=== PATIENT | male | born 1980 | race Caucasian/White ===

== ENCOUNTER 2020-12-17 15:30 | Outpatient (RCR) | payer BC, SELFPAY | END 2020-12-17 16:25 | disposition other institution (70) | LOC: HO.OT 15:30 | PROVIDERS: PCP Internal Medicine; Visit Provider Physician Assistant | DX: M77.11 Lateral epicondylitis, right elbow (principal); M77.01 Medial epicondylitis, right elbow | CPT/HCPCS: 97035; 97110; 97140; 97166 ==

== ENCOUNTER 2023-02-06 09:43 | Outpatient (AMB) | payer OTHER, SELFPAY ==
--- NOTE | 2023-02-06 10:09 | MHC.OFFWIV ---
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 Patient complaining of cerumen impaction. He states his ears have been feeling blocked and his hearing has been decreased for the past several days. He has been utilizing [id number] earwax removal kit without relief. He denies any otalgia. He denies any fevers or chills. He denies any congestion or rhinorrhea. He is otherwise feeling well. [facility] Social History Patient Tobacco Use Status: Never used Tobacco Review of Systems Const All systems reviewed & are unremarkable except as noted in HPI and below Reports no additional complaints Eyes Reports no additional complaints ENT Reports no additional complaints Card Reports no additional complaints Resp Reports no additional complaints GI Reports no additional complaints Reports no additional complaints Musc Reports no additional complaints Skin/Breast Reports system reviewed and no additional complaints, except as documented Neuro Reports no additional complaints Psych Reports no additional complaints Endo Reports no additional complaints Graeme/Lymph Reports no additional complaints Aller/Immun Reports no additional complaints Physical Exam Vital Signs: Last Vital Signs Temp 97.6 F 02/06/23 10:18 Pulse 76 02/06/23 10:18 BP 130/74 02/06/23 10:18 Pulse Ox 97 02/06/23 10:18 BMI result Body Mass Index 35.4 Const General: cooperative, healthy appearing, no acute distress and well developed Orientation/consciousness: patient oriented x3 HEENT Other: Cerumen impaction bilaterally. Following cerumen removal, external auditory canals are within normal limits bilaterally without erythema, edema, drainage, or tenderness in his tympanic membranes are without bulging, erythema, edema bilaterally. Head: Yes normal to inspection Ears: hearing grossly normal bilaterally General nose exam: Normal external nose present Face and sinus: Yes normal facial exam Mouth: Normal oral and palatal mucosa present Eyes General: appearance normal, both eyes and all related structures Pupils: Equal, round and reactive pupils present EOM: EOMs intact bilaterally Resp Effort & Inspection: normal respiratory effort and no respiratory distress Auscultation: clear to auscultation bilaterally Cardio Rate: regular rate Rhythm: regular rhythm Heart sounds: no gallops, no murmurs and no rubs Peripheral pulses: Peripheral pulses 2+ throughout GI Inspection: No distended Palpation (GI): Soft to palpation and nontender Auscultation: normal bowel sounds Skin General skin exam: no rashes or lesions noted Neuro General: patient oriented x3 Cranial nerves: Yes CN's II-XII intact bilaterally and Yes Equal, round and reactive pupils present Gait exam (Neuro): Normal gait present Motor exam (neuro): 5/5 motor strength present throughout Extrem General: Yes normal to inspection, Yes full ROM and Yes no clubbing, cyanosis or edema Psych Appearance: grossly normal Mental Status: mental status grossly normal Office Procedures Cerumen Removal From which ear canal was the cerumen removed: bilateral Removal: irrigation Notes: patient tolerated procedure well [id number] Irrigation/Lavage Assessment & Plan Assessment & Plan (1) Impacted cerumen of both ears: Code(s): H61.23 - Impacted cerumen, bilateral Plan: This is a 42-year-old male presenting to the office complaining of bilateral ear fullness. On physical examination, he has bilateral cerumen impactions. His physical exam is otherwise benign, his vital signs are stable, and he is overall nontoxic appearing. Cerumen removal was performed using irrigation. On re-examination, his external auditory canals are without cerumen impaction, edema, or erythema in his tympanic membranes are without bulging, edema, or erythema. Patient instructed to follow-up here for persistent or worsening symptoms. Patient verbalizes understanding and he is in agreement with the plan. Coding Level of Care Code New Pt Level 3 (09398) Diagnoses Impacted cerumen of both ears H61.23 CPT Codes Office Procedure - CPT: 69384-Mqh Irrigation/Lavage ([id number])
[2023-02-06 10:18] VITALS: BP 130/74; PULSE 76; TEMP 36.4; O2SAT 97; BMI 35.4
== END 2023-02-06 11:25 | disposition home or self-care (01) ==
PROVIDERS: PCP Internal Medicine; Visit Provider Physician Assistant Medical
DX: H61.23 Impacted cerumen, bilateral (principal)
CPT/HCPCS: 69209; 99051; 99203

== ENCOUNTER 2023-11-22 08:10 | Outpatient (AMB) | payer OTHER, SELFPAY ==
--- OUTSIDE RECORDS SUMMARY | 2023-11-22 08:12 | XMS_ITS | Continuity of Care Document ---
Author Organization [facility] Wojciech Rodriguez Eduard lt Address [address] [place] [address]- Care Team Providers Care Rouge Sifter And Miller Name Role Phone Mandie RAND, Nelson Goode Primary Care Physician [phone] [facility] Date[facility]): 01/[facility] - 02/11/20 [facility] Adult [address] [place] [address]- [place] States Allergies, Adverse Reactions, Alerts Substance Reaction Severity Status NKA Active Immunizations Given and Recorded Vaccine Date Status Refusal Reason influenza virus vaccine, inactivated 04/03/19 Give n influenza virus vaccine, inactivated 03/05/18 William rded influenza virus vaccine, inactivated 1 04/04/17 Re corded influenza virus vaccine, inactivated 04/18/16 Give n influenza virus vaccine, inactivated 2 04/30/15 Gi tanisha influenza virus vaccine, inactivated 3 04/20/15 Re corded tetanus/diphtheria/pertussis, acel(Tdap) 01/08/15 Given 1Result Comment: [04/05/2017] timur santo endicott 2Result Comment: error 3[facility] History: [facility] aspirin 81 mg oral delayed release tablet 81 mg, By Mouth, Daily, Plz take it over the counter., # 30 tablet, Refills 0, Tot. Refills 0, Maintenance, 10/14/17 9:48:17 EDT, Do Not Route Start Date: 10/14/17 Status: Ordered atorvastatin 20 mg oral tablet See Instructions, TAKE 1 TABLET BY MOUTH EVERY DAY, # 30 Unknown, 5 Refills, Soft Stop, 01/12/20 15:38:00 EDT, [facility], 197, cm, 04/03/19 9:07:00 EST, Height, Dry Weight Start Date: 01/12/20 Status: Ordered diclofenac sodium 75 mg oral delayed release tablet 1 tablet, By Mouth, 2 times a day, # 60 Unknown, 5 Refills, Maintenance, 10/25/19 8:07:00 EDT, [facility] # [facility], 197, cm, 04/03/19 9:07:00 EST, Height Start Date: 10/25/19 Status: Ordered Zoloft 50 mg oral tablet 1.5 tablet = 75 mg, By Mouth, Daily, # 45 tablet, 2 Refills, Maintenance, 12/19/19 11:19:00 EDT, Tablet, [facility] # [facility], 197, cm, 04/03/19 9:07:00 EST, Height Start Date: 12/19/19 Status: Ordered Problem List Condition Effective Dates Status Health Status Inform ant Complicated migraine(Confirmed) Active Family history of stroke(Confirmed) 1 Active Hypercholesterolemia(Confirmed) Active Right tennis elbow(Confirmed) Active 1Mom Social History Social History Type Response Smoking Status Never smoker; Tobacc o user in household: No entered on: 01/08/15 Sex
--- OUTSIDE RECORDS SUMMARY | 2023-11-22 08:12 | XMS_ITS | Continuity of Care Document ---
Author Organization [facility] Wojciech Herzog Eduard lt Address [address] [place] [address]- Care Team Providers Care Jazz Singer Name Role Phone Mandie RAND, Nelson Goode Primary Care Physician [facility] Date[facility]): 10/13/20 - 11/12/20 [facility] Wojciech Herzog Adult [address] [place] [address]- Allergies, Adverse Reactions, Alerts Substance Reaction Severity Status NKA Active Immunizations Given and Recorded Vaccine Date Status Refusal Reason SARS-CoV-2 (COVID-19) mRNA-1273 vaccine 08/29/20 R ecorded SARS-CoV-2 (COVID-19) mRNA BNT-162b2 vac 08/06/20 Recorded influenza virus vaccine, inactivated 04/03/19 Give n influenza virus vaccine, inactivated 03/05/18 William rded influenza virus vaccine, inactivated 1 04/04/17 Re corded influenza virus vaccine, inactivated 04/18/16 Give n influenza virus vaccine, inactivated 2 04/30/15 Gi tanisha influenza virus vaccine, inactivated 3 04/20/15 Re corded tetanus/diphtheria/pertussis, acel(Tdap) 01/08/15 Given 1Result Comment: [04/05/2017] timur santo wojciech herzog 2Result Comment: error 3Location History: [facility] Medic[facility] aspirin 81 mg oral delayed release tablet 81 mg, By Mouth, Daily, Plz take it over the counter., # 30 tablet, Refills 0, Tot. Refills 0, Maintenance, 10/14/17 9:48:17 EDT, Do Not Route Start Date: 10/14/17 Status: Ordered atorvastatin 20 mg oral tablet 1 tablet = 20 mg, By Mouth, Daily, # 30 tablet, 11 Refills, Soft Stop, 09/25/20 16:33:00 EDT, [facility], 197, cm, 09/25/20 16:13:00 EDT, Height Start Date: 09/25/20 Stop Date: 09/20/21 Status: Ordered diclofenac sodium 75 mg oral delayed release tablet 1 tablet, By Mouth, 2 times a day, # 60 Unknown, 5 Refills, Maintenance, 07/16/20 16:23:00 EST, [facility] # [facility], 197, cm, 04/03/19 9:07:00 EST, Height Start Date: 07/16/20 Status: Ordered Multivitamin By Mouth, Daily, 0 Refills, Maintenance, 04/04/20 16:59:00 EST, Partial fill upon patient request Start Date: 04/04/20 Status: Ordered sertraline 50 mg oral tablet 1.5 tablet, By Mouth, Daily, # 45 Unknown, 11 Refills, Maintenance, 09/25/20 16:33:00 EDT, [facility] # [facility], 197, cm, 09/25/20 16:13:00 EDT, Height Start Date: 09/25/20 Status: Ordered vitamin c vitamin c, By Mouth, Refills 0, Maintenance, 04/04/20 16:59:00 EST, Supply Start Date: 04/04/20 Status: Ordered Problem List Condition Effective Dates Status Health Status Inform ant BMI 35.0-35.9,adult(Confirmed) Active Complicated migraine(Confirmed) Active Excessive daytime sleepiness(Confirmed) Active Family history of stroke(Confirmed) 1 Active Hypercholesterolemia(Confirmed) Active Right tennis elbow(Confirmed) Active Palpitations(Confirmed) Active Loud snoring(Confirmed) Active 1Mom Social History Social History Type Response Smoking Status Never smoker; Tobacc o user in household: No entered on: 01/08/15 Sex
--- OUTSIDE RECORDS SUMMARY | 2023-11-22 08:12 | XMS_ITS | Continuity of Care Document ---
Author Organization [facility] Address [address] [place] [address]- Care Team Providers Care Electronic Gluer Name Role Phone Mandie RAND, Nelson Goode Primary Care Physician Encounter [facility] Date(s): 10/15/20 - 11/14/[address] [address]- Attending Physician: Lo Mullins Admitting Physician: AdmLo chatterjee Referring Physician: AdmtrLo Allergies, Adverse Reactions, Alerts Substance Reaction Severity [...] 01/08/15 Given 1Result Comment: [04/05/2017] timur santo silva herzog 2Result Comment: error 3Location History: [facility] [...] 11 Refills, Soft Stop, 09/25/20 16:33:00 EDT, [facility], 197, cm, 09/25/20 16:13:00 EDT, Height Start Date: 09/25/20 Stop Date: 09/20/21 Status: Ordered diclofenac sodium 75 mg oral delayed release tablet 1 tablet, By Mouth, 2 times a day, # 60 Unknown, 5 Refills, Maintenance, 07/16/20 16:23:00 EST, [facility] # [facility], 197, cm, 04/03/19 9:07:00 EST, Height Start Date: 07/16/20 Status: Ordered Multivitamin By Mouth, Daily, 0 Refills, Maintenance, 04/04/20 16:59:00 EST, Partial fill upon patient request Start Date: 04/04/20 Status: Ordered sertraline 50 mg oral tablet 1.5 tablet, By Mouth, Daily, # 45 Unknown, 11 Refills, Maintenance, 09/25/20 16:33:00 EDT, [facility] # [facility], 197, cm, 09/25/20 16:13:00 [...]
--- OUTSIDE RECORDS SUMMARY | 2023-11-22 08:12 | XMS_ITS | Continuity of Care Document ---
Author Organization [facility] Wojciech Herzog Eduard lt Address [address] [place] [address]- Care Team Providers Care Laundry Aide Name Role Phone Nelson Lockwood MD Primary Care Physician [facility]s): 09/07/19 - 02/17/20 [facility] W[facility]cie[facility] Herzog Adult [address] [place] [address]- [place] States Attending Physician: Nelson Lockwood MD Allergies, Adverse Reactions, Alerts Substance Reaction Severity [...] tetanus/diphtheria/pertussis, acel(Tdap) 01/08/15 Given 1Result Comment: [04/05/2017] demetrius herzog 2Result Comment: error 3Location History: [facility] [...] Unknown, 5 Refills, Maintenance, 10/25/19 8:07:00 EDT, [email or web address] # [facility], 197, cm, 04/03/19 9:07:00 EST, Height Start Date: 10/25/19 Status: Ordered Zoloft 50 mg oral tablet 1.5 tablet = 75 mg, By Mouth, Daily, # 45 tablet, 2 Refills, Maintenance, 12/19/19 11:19:00 EDT, Tablet, [facility] # [facility], 197, cm, 04/03/19 9:07:00 [...]
--- OUTSIDE RECORDS SUMMARY | 2023-11-22 08:12 | XMS_ITS | Continuity of Care Document ---
Author Organization [facility] Wojciech Herzog Eduard lt Address [address] [place] [address]- Care Team Providers Care Field Software Engineer Name Role Phone Mandie RAND, Nelson Goode Primary Care Physician [facility] Date(s): 04/14/23 - 05/14/23 [facility] Adult [address] [place] [address]- Allergies, Adverse Reactions, Alerts No Known Allergies Immunizations Given and Recorded Vaccine Date Status Refusal Reason SARS-CoV-2 (COVID-19) mRNA-1273 vaccine 08/29/20 R ecorded SARS-CoV-2 (COVID-19) mRNA BNT-162b2 vac 08/06/20 Recorded influenza virus vaccine, inactivated 04/03/19 Give n influenza virus vaccine, inactivated 03/05/18 William rded influenza virus vaccine, inactivated 1 04/04/17 Re corded influenza virus vaccine, inactivated 04/18/16 Give n influenza virus vaccine, inactivated 2 04/20/15 Re corded tetanus/diphtheria/pertussis, acel(Tdap) 01/08/15 Given 1Result Comment: [04/05/2017] timur santo wojciech herzog 2Location History: [facility] aspirin 81 mg oral delayed release tablet 81 mg, By Mouth, Daily, Plz take it over the counter., # 30 tablet, Refills 0, Tot. Refills 0, Maintenance, 10/14/17 9:48:17 EDT, Do Not Route Start Date: 10/14/17 Status: Ordered atorvastatin 20 mg oral tablet 1 tablet, By Mouth, Daily, # 90 tablet, 3 Refills, 01/12/23 11:24:00 EDT, [facility], 197,cm, 04/15/22 14:06:00 EST, Height Start Date: 01/12/23 Status: Ordered diclofenac sodium 75 mg oral delayed release tablet 1 tablet, By Mouth, 2 times a day, FURTHER REFILLS REQUIRE AN OFFICE VISIT, # 28 tablet, 0 Refills,Maintenance, 02/22/23 8:17:00 EDT, [facility], 197, cm, 04/15/22 14:06:00 EST, Height Start Date: 02/22/23 Stop Date: 03/08/23 Status: Ordered Multivitamin By Mouth, Daily, 0 Refills, Maintenance, 04/04/20 16:59:00 EST, Partial fill upon patient request Start Date: 04/04/20 Status: Ordered sertraline 50 mg oral tablet 1.5 tablet, By Mouth, Daily, # 135 tablet, 1 Refills, Maintenance, 04/14/23 20:28:00 EST, [facility], 197, cm, 04/15/22 14:06:00 EST, Height Start Date: 04/14/23 Status: Ordered vitamin c vitamin c, By Mouth, Refills 0, Maintenance, 04/04/20 16:59:00 EST, Supply Start Date: 04/04/20 Status: Ordered Problem List Condition Confirmation Course Effective Dates Status Health Status Informant Complicated migraine Confirmed Active Family history of stroke 1 Confirmed Active Hypercholesterolemia Confirmed Active Right tennis elbow Confirmed Active Elevated liver function tests Confirmed Active Obese class II Confirmed Active Obstructive sleep apnea Confirmed Active Palpitations Confirmed Active 1Mom Social History Social History Type Response Smoking Status Never smoker; Tobacc o user in household: No entered on: 01/08/15 Sex Patient Care team information Care Team Personnel Name: Nelson Lockwood MD Position: [facility] Physician - Primary Care Member Role: PCP Address: Address: [address] [place] [address]- Care Team Related Persons Name: MARIBEL RECIO Address: home [address] [place] [id number]
--- OUTSIDE RECORDS SUMMARY | 2023-11-22 08:12 | XMS_ITS | Continuity of Care Document ---
Author Organization [facility] Address [address] [place] [address]- Care Team Providers Care Linux Server Administrator Name Role Phone Mandie RAND, Nelson Goode Primary Care Physician [phone] [facility]counter [facility] Date(s): 11/29/20 - 12/29/[address] [address]- Allergies, Adverse Reactions, Alerts Substance Reaction Severity [...] 11 Refills, Soft Stop, 09/25/20 16:33:00 EDT, [facility], 197, cm, 09/25/20 16:13:00 EDT, Height Start Date: 09/25/20 Stop Date: 09/20/21 Status: Ordered diclofenac sodium 75 mg oral delayed release tablet 1 tablet, By Mouth, 2 times a day, # 60 Unknown, 5 Refills, Maintenance, 07/16/20 16:23:00 EST, [facility] # [facility], 197, cm, 04/03/19 9:07:00 EST, Height Start Date: 07/16/20 Status: Ordered Multivitamin By Mouth, Daily, 0 Refills, Maintenance, 04/04/20 16:59:00 EST, Partial fill upon patient request Start Date: 04/04/20 Status: Ordered oxyCODONE 5 mg oral tablet 5 mg, 1, tablet, By Mouth, Every 4 hours, PRN, Refills 0, Tot. Refills 0, Maintenance, as needed for pain, 12/13/20 10:50:00 EDT, Partial fill upon patient request if the prescription is for a schedule II opioid drug. Start Date: 12/13/20 Status: Ordered sertraline 50 mg oral tablet 1.5 tablet, By Mouth, Daily, # 45 Unknown, 11 Refills, Maintenance, 09/25/20 16:33:00 EDT, [facility], 197, cm, 09/25/20 16:13:00 [...]
--- OUTSIDE RECORDS SUMMARY | 2023-11-22 08:12 | XMS_ITS | Continuity of Care Document ---
Author Organization [facility] Wojciech Herzog Eduard lt Address [address] [place] [address]- Care Team Providers Care Addictions Therapist Name Role Phone Mandie RAND, Nelson Goode Primary Care Physician [phone] [facility] Date(s): 01/06/22 - 02/05/22 [facility] Adult [address] [place] [address]- Attending Physician: Admtr, Ar8 Allergies, Adverse Reactions, Alerts No Known Allergies [...] tablet, By Mouth, Daily, # 90 tablet, 1 Refills, 01/06/22 7:22:00 EDT, [facility] # [facility], 197, cm, 01/06/22 6:53:00 EDT, Height, 129.8, kg, 12/13/20 9:06:00 EDT, Dry Weight Start Date: 01/06/22 Status: Ordered diclofenac sodium 75 mg oral delayed release tablet 1 tablet, By Mouth, 2 times a day, # 180 tablet, 1 Refills, 01/06/22 7:22:00 EDT, [facility] # [facility], 197, cm, 01/06/22 6:53:00 EDT, Height, 129.8, kg, 12/13/20 9:06:00 EDT, Dry Weight Start Date: 01/06/22 Status: Ordered Multivitamin By Mouth, Daily, 0 [...] Mouth, Daily, # 135 tablet, 1 Refills, 01/06/22 7:22:00 EDT, [facility], 197, cm, 01/06/22 6:53:00 EDT, Height, 129.8, kg, 12/13/20 9:06:00 EDT, Dry Weight Start Date: 01/06/22 Status: Ordered vitamin c vitamin c, By Mouth, Refills 0, Maintenance, 04/04/20 16:59:00 EST, Supply Start Date: 04/04/20 Status: Ordered Problem List Condition Effective Dates Status Health Status Inform ant Complicated migraine(Confirmed) Active Family history of stroke(Confirmed) 1 Active Hypercholesterolemia(Confirmed) Active Right tennis elbow(Confirmed) Active Elevated liver function tests(Confirmed) Active Obese class II(Confirmed) Active Obstructive sleep apnea(Confirmed) Active Palpitations(Confirmed) Active 1Mom Social History Social History Type Response Smoking Status Never smoker; Tobacc o user in household: No entered on: 01/08/15 Sex Care Team Personnel Name: Mandie RAND, Nelson Goode Address: [address] [place] [address] [place], [place] [address]
--- OUTSIDE RECORDS SUMMARY | 2023-11-22 08:12 | XMS_ITS | Continuity of Care Document ---
Author Organization [facility] Michael Eduard Address [address] [place] [address]- Care Team Providers Care Latcher Name Role Phone Mandie RAND, Nelson Goode Primary Care Physician [phone] Encounter [facility] Date(s): 04/15/22 - 04/22/22 [facility] Adult [address] [place] [address]- Encounter Diagnosis Left foot pain(Discharge Diagnosis) - 04/15/22 Attending Physician: Noe Quarles Referring Physician: Rosa RAND, Ari Delgadillo Allergies, Adverse Reactions, Alerts No Known Allergies [...] 90 tablet, 1 Refills, 01/06/22 7:22:00 EDT, [facility] # [facility], 197, cm, 01/06/22 6:53:00 EDT, Height, 129.8, kg, 12/13/20 9:06:00 EDT, Dry Weight Start Date: 01/06/22 Status: Ordered diclofenac sodium 75 mg oral delayed release tablet 1 tablet, By Mouth, 2 times a day, # 180 tablet, 1 Refills, 01/06/22 7:22:00 EDT, [facility] # [facility], 197, cm, 01/06/22 6:53:00 EDT, Height, 129.8, kg, 12/13/20 9:06:00 EDT, Dry Weight Start Date: 01/06/22 Status: Ordered Multivitamin By Mouth, Daily, 0 Refills, Maintenance, 04/04/20 16:59:00 EST, Partial fill upon patient request Start Date: 04/04/20 Status: Ordered sertraline 50 mg oral tablet 1.5 tablet, By Mouth, Daily, # 135 tablet, 1 Refills, 04/15/22 14:21:00 EST, [facility] # [facility], 197, cm, 04/15/22 14:06:00 EST, Height, 129.8, kg, 12/13/20 9:06:00 EDT, Dry Weight Start Date: 04/15/22 Status: Ordered vitamin c vitamin c, By [...] apnea Confirmed Active Palpitations Confirmed Active 1Mom Diagnosis Diagnosis Type Effective Dates Health Status Cl inical Service Informant Left foot pain Discharge Diagnosis 04/15/22 Vital Signs Most recent to oldest [Reference Range]: 1 Height 197 cm (04/15/22 2:06 PM) Weight 138.3 kg (04/15/22 2:06 PM) Oxygen Saturation [94-100 %] 100 % (04/15/22 2:06 PM) Pulse Rate [55-90 bpm] 70 bpm (04/15/22 2:06 PM) Body Mass Index [18.5-24.99 kg/m2] 35.64 kg/m2 *>HHI* (04/15/22 2:06 PM) Blood Pressure [90-138/55-84 mm Hg] 139/ 81mm Hg *H* (04/15/22 2:06 PM) Temperature [96.8-100.4 DegF] 97.6 DegF (04/15/22 2:06 PM) Mode of Delivery (Oxygen) Room air (04/15/22 2:06 PM) Blood pressure sites Arm, right (04/15/22 2:06 PM) Temperature Route Oral (04/15/22 2:06 PM) Weight Obtained Via Standing scale (04/15/22 2:06 PM) Social History Social History Type Response Smoking Status Never smoker; Tobacc o user in household: No entered on: 01/08/15 Sex Patient Care team information Care Team Personnel Name: Mandie RAND, Nelson Goode Position: [facility] Primary Care Physician Member Role: PCP Address: Address: [address] [place] [address]- Care Team Related Persons Name: MARIBEL RECIO Address: home [address] [place] [address]
--- OUTSIDE RECORDS SUMMARY | 2023-11-22 08:12 | XMS_ITS | Continuity of Care Document ---
Author Organization [facility] Wojciech Herzog Eduard lt Address [address] [place] [address]- Care Team Providers Care Closer On Name Role Phone Nelson Lockwood MD Primary Care Physician Encounter [facility] Date(s): 05/01/21 - 05/31/21 [facility] Adult [address] [place] [address]- Attending Physician: Admtr, Ar8 Allergies, Adverse Reactions, Alerts Substance Reaction Severity [...] Mouth, 2 times a day, # 60 tablet, 5 Refills, [facility], 197, cm, 10/15/20 15:52:00 EDT, Height, 129.8, kg, 12/13/20 9:06:00 EDT, Dry Weight Start Date: 01/31/21 Status: Ordered Multivitamin By Mouth, Daily, 0 [...] Unknown, 11 Refills, Maintenance, 09/25/20 16:33:00 EDT, [facility], 197, cm, 09/25/20 16:13:00 EDT, Height Start Date: 09/25/20 Status: Ordered vitamin c vitamin c, By Mouth, Refills 0, Maintenance, 04/04/20 16:59:00 EST, Supply Start Date: 04/04/20 Status: Ordered Problem List Condition Effective Dates Status Health Status Inform ant BMI 35.0-35.9,adult(Confirmed) Active Complicated migraine(Confirmed) Active Family history of stroke(Confirmed) 1 Active Hypercholesterolemia(Confirmed) Active Right tennis elbow(Confirmed) Active Obstructive sleep apnea(Confirmed) Active Palpitations(Confirmed) Active 1Mom Social History Social History Type Response Smoking Status Never smoker; Tobacc o user in household: No entered on: 01/08/15 Sex
--- OUTSIDE RECORDS SUMMARY | 2023-11-22 08:12 | XMS_ITS | Continuity of Care Document ---
Author Organization [facility] Wojciech Herzog Eduard lt Address [address] [place] [address]- Care Team Providers Care Retail Sales Associate Seasonal Name Role Phone Mandie RAND, Nelson Goode Primary Care Physician [phone] [facility]): 10/15/23 - 11/14/23 [facility] Wojciech Herzog Adult [address] [place] [address]- Allergies, Adverse Reactions, Alerts No Known Allergies [...] 28 tablet, 0 Refills,Maintenance, 02/22/23 8:17:00 EDT, [facility] # [facility], 197, cm, 04/15/22 14:06:00 EST, Height Start Date: 02/22/23 Stop Date: 03/08/23 Status: Ordered Multivitamin By Mouth, Daily, 0 Refills, Maintenance, 04/04/20 16:59:00 EST, Partial fill upon patient request Start Date: 04/04/20 Status: Ordered sertraline 50 mg oral tablet 1.5 tablet, By Mouth, Daily, # 135 tablet, 0 Refills, Maintenance, 10/02/23 7:40:00 EDT, [facility] # [facility], 197, cm, 04/15/22 14:06:00 EST, Height Start Date: 10/02/23 Status: Ordered vitamin c vitamin c, By [...] Personnel Name: Mandie RAND, Nelson Goode Position: [facility] Physician - Primary Care Member Role: PCP Address: Address: [address] [place] [address]- Care Team Related Persons Name: MARIBEL RECIO Address: home [address] [place] [address] Name: MARIBEL RECIO Address: home [address] [place] [address]
--- OUTSIDE RECORDS SUMMARY | 2023-11-22 08:12 | XMS_ITS | Continuity of Care Document ---
Author Organization [facility] Wojciech Rodriguez Eduard Address [address] [place] [address]- Care Team Providers Care Pole Peeling Machine Operator Helper Name Role Phone Mandie RAND, Nelson Goode Primary Care Physician [phone] [facility]): 11/18/20 - 12/18/20 [facility] Wojciech Rodriguez Adult [address] [place] [address]- Allergies, Adverse Reactions, Alerts Substance Reaction Severity [...] 01/08/15 Given 1Result Comment: [04/05/2017] timur santo [place] 2Result Comment: error 3Location History: [facility] [...] 11 Refills, Soft Stop, 09/25/20 16:33:00 EDT, [facility], 197, cm, 09/25/20 16:13:00 EDT, Height Start Date: 09/25/20 Stop Date: 09/20/21 Status: Ordered diclofenac sodium 75 mg oral delayed release tablet 1 tablet, By Mouth, 2 times a day, # 60 Unknown, 5 Refills, Maintenance, 07/16/20 16:23:00 EST, [facility], 197, cm, 04/03/19 9:07:00 [...] Unknown, 11 Refills, Maintenance, 09/25/20 16:33:00 EDT, [facility] # [facility], 197, cm, 09/25/20 16:13:00 [...]
--- OUTSIDE RECORDS SUMMARY | 2023-11-22 08:12 | XMS_ITS | Continuity of Care Document ---
Author Organization [facility] Wojciech Herzog Eduard lt Address [address] [place] [address]- Care Team Providers Care Ship Runner Name Role Phone Nelson Lockwood MD Primary Care Physician En[place] [facility] Date(s): 01/31/20 - 05/30/20 [facility] Wojciech Herzog Adult [address] [place] [address]- Attending Physician: Nelson Lockwood MD Allergies, Adverse [...] Unknown, 5 Refills, Maintenance, 10/25/19 8:07:00 EDT, [facility] # [facility], 197, cm, 04/03/19 9:07:00 EST, Height Start Date: 10/25/19 Status: Ordered Multivitamin By Mouth, Daily, 0 Refills, Maintenance, 04/04/20 16:59:00 EST, Partial fill upon patient request Start Date: 04/04/20 Status: Ordered vitamin c vitamin c, By Mouth, Refills 0, Maintenance, 04/04/20 16:59:00 EST, Supply Start Date: 04/04/20 Status: Ordered Zoloft 50 mg oral tablet 1.5 tablet = 75 mg, By Mouth, Daily, # 45 tablet, 2 Refills, Maintenance, 03/12/20 15:24:00 EDT, Tablet, [facility] # [facility], 197, cm, 04/03/19 9:07:00 EST, Height Start Date: 03/12/20 Status: Ordered Problem List Condition Effective Dates Status Health Status Inform ant Complicated migraine(Confirmed) Active Family history of stroke(Confirmed) 1 Active Hypercholesterolemia(Confirmed) Active Right tennis elbow(Confirmed) Active 1Mom Social History Social History Type Response Smoking Status Never smoker; Tobacc o user in household: No entered on: 01/08/15 Sex
--- OUTSIDE RECORDS SUMMARY | 2023-11-22 08:12 | XMS_ITS | Continuity of Care Document ---
Author Organization [facility] ter Address [address] [place] [address]- Care Team Providers Care Esl Instructor Name Role Phone Mandie RAND, Nelson Goode Primary Care Physician [facility] Date[facility]s): 04/01/20 - 05/12/[address] [address] Attending Physician: Joshua Dill MD Allergies, Adverse Reactions, Alerts Substance Reaction [...] Given 1Result Comment: [04/05/2017] timur santo silva gilley 2Result Comment: error 3Location History: BIG Y [...] Unknown, 5 Refills, Maintenance, 10/25/19 8:07:00 EDT, [facility] # [facility], 197, cm, 04/03/19 9:07:00 [...] 2 Refills, Maintenance, 03/12/20 15:24:00 EDT, Tablet, [facility] # [facility], 197, cm, 04/03/19 9:07:00 [...]
--- OUTSIDE RECORDS SUMMARY | 2023-11-22 08:12 | XMS_ITS | Continuity of Care Document ---
Author Organization [facility] Michael Eduard lt Address [address] [place] [address]- Care Team Providers Care Assembler Radio And Electrical Name Role Phone Nelson Lockwood MD Primary Care Physician [phone] Encounter [facility] Date(s): 09/25/20 - 10/02/20 [facility] Michael Adult [address] [place] [address]- Encounter Diagnosis Anxiety(Discharge Diagnosis) - 09/25/20 Hypercholesterolemia(Discharge Diagnosis) - 09/25/20 Right tennis elbow(Discharge Diagnosis) - 09/25/20 Attending Physician: Nelson Lockwood MD Allergies, Adverse [...] 11 Refills, Soft Stop, 09/25/20 16:33:00 EDT, [facility], 197, cm, 09/25/20 16:13:00 EDT, Height Start Date: 09/25/20 Stop Date: 09/20/21 Status: Ordered diclofenac sodium 75 mg oral delayed release tablet 1 tablet, By Mouth, 2 times a day, # 60 Unknown, 5 Refills, Maintenance, 07/16/20 16:23:00 EST, [facility] # [facility], 197, cm, 04/03/19 9:07:00 EST, Height Start Date: 07/16/20 Status: Ordered Multivitamin By Mouth, Daily, 0 Refills, Maintenance, 04/04/20 16:59:00 EST, Partial fill upon patient request Start Date: 04/04/20 Status: Ordered sertraline 50 mg oral tablet 1.5 tablet, By Mouth, Daily, # 45 Unknown, 11 Refills, Maintenance, 09/25/20 16:33:00 EDT, [facility] # [facility], 197, cm, 09/25/20 16:13:00 EDT, Height Start Date: 09/25/20 Status: Ordered vitamin c vitamin c, By Mouth, Refills 0, Maintenance, 04/04/20 16:59:00 EST, Supply Start Date: 04/04/20 Status: Ordered Problem List Condition Effective Dates Status Health Status Inform ant Complicated migraine(Confirmed) Active Family history of stroke(Confirmed) 1 Active Hypercholesterolemia(Confirmed) Active Right tennis elbow(Confirmed) Active Palpitations(Confirmed) Active Snorings(Confirmed) Active 1Mom Diagnosis Diagnosis Type Effective Dates Health Status Clinical Service Informant Anxiety Discharge Diagnosis 09/25/20 Hypercholesterolemia Discharge Diagnosis 09/25/20 Right tennis elbow Discharge Diagnosis 09/25/20 Vital Signs Most recent to oldest [Reference Range]: 1 Height 197 cm (09/25/20 4:13 PM) Weight 137.9 kg (09/25/20 4:13 PM) Oxygen Saturation [94-100 %] 97 % (09/25/20 4:13 PM) Pulse Rate [55-90 bpm] 71 bpm (09/25/20 4:13 PM) Body Mass Index [18.5-24.99] 35.53 *>HHI* (09/25/20 4:13 PM) Blood Pressure [90-138/55-84 mm Hg] 122/ 84mm Hg (09/25/20 4:13 PM) Blood pressure sites Arm, left (09/25/20 4:13 PM) Weight Obtained Via Standing scale (09/25/20 4:13 PM) Social History Social History Type Response Smoking Status Never smoker; Tobacc o user in household: No entered on: 01/08/15 Sex
--- OUTSIDE RECORDS SUMMARY | 2023-11-22 08:12 | XMS_ITS | Continuity of Care Document ---
Author Organization [facility] Wojciech Rodriguez Eduard lt Address [address] [place] [address]- Care Team Providers Care Utilization Management Um Nurse Name Role Phone Mandie RAND, Nelson Goode Primary Care Physician [facility] Date(s): 04/30/20 - 05/30/20 [facility] Adult [address] [place] [address]- Attending Physician: Admtr, Ar8 Allergies, Adverse Reactions, [...] 01/08/15 Given 1Result Comment: [04/05/2017] timur [place] 2Result Comment: error 3Location History: BIG Y [...] Unknown, 5 Refills, Maintenance, 10/25/19 8:07:00 EDT, [facility] # [facility], 197, cm, 04/03/19 9:07:00 [...] Refills, Maintenance, 03/12/20 15:24:00 EDT, Tablet, [facility] # [facility], 197, cm, 04/03/19 9:07:00 [...]
--- OUTSIDE RECORDS SUMMARY | 2023-11-22 08:12 | XMS_ITS | Continuity of Care Document ---
Author Organization [facility] Address [address] [place] [address]- Care Team Providers Care Senior Salesforce Developer Name Role Phone Mandie RAND, Nelson Goode Primary Care Physician [phone] [place] [facility] 02/19/21 - 03/21/21 [facility] [address] [address]- Attending Physician: Lo Mullins Admitting Physician: AdmLo [...] tablet, Refills 0, Tot. Refills 0, Maintenance, 05/24/18 9:48:17 EDT, Do Not Route Start Date: [...] a day, # 60 tablet, 5 Refills, [facility] # [facility], 197, cm, 10/15/20 15:52:00 [...] Unknown, 11 Refills, Maintenance, 09/25/20 16:33:00 EDT, [facility] # [facility], 197, cm, 09/25/20 16:13:00 [...]
--- OUTSIDE RECORDS SUMMARY | 2023-11-22 08:12 | XMS_ITS | Continuity of Care Document ---
Author Organization [facility] Michael Eduard lt Address [address] [place] [address]- Care Team Providers Care Telecommunications Technician Name Role Phone Mandie RAND, Nelson Goode Primary Care Physician [place] [facility] [place]): 03/27/22 - 04/03/22 [facility] Michael Adult [address] [place] [address]- Encounter Diagnosis Palpitations(Discharge Diagnosis) - 03/27/22 Attending Physician: Antonette ROWELL, Irene Byrnes Allergies, Adverse Reactions, Alerts No Known Allergies [...] 90 tablet, 1 Refills, 01/06/22 7:22:00 EDT, [facility] # [facility], 197, cm, 01/06/22 6:53:00 EDT, Height, 129.8, kg, 12/13/20 9:06:00 EDT, Dry Weight Start Date: 01/06/22 Status: Ordered diclofenac sodium 75 mg oral delayed release tablet 1 tablet, By Mouth, 2 times a day, # 180 tablet, 1 Refills, 01/06/22 7:22:00 EDT, [facility] # [facility], 197, cm, 01/06/22 6:53:00 EDT, Height, 129.8, kg, 12/13/20 9:06:00 EDT, Dry Weight Start Date: 01/06/22 Status: Ordered Multivitamin By Mouth, Daily, 0 Refills, Maintenance, 04/04/20 16:59:00 EST, Partial fill upon patient request Start Date: 04/04/20 Status: Ordered sertraline 50 mg oral tablet 1.5 tablet, By Mouth, Daily, # 135 tablet, 1 Refills, 01/06/22 7:22:00 EDT, [facility] # [facility], 197, cm, 01/06/22 6:53:00 [...] Dates Health Status Cl inical Service Informant Palpitations Discharge Diagnosis 03/27/22 Vital Signs Most recent to oldest [Reference Range]: 1 Height 197 cm (03/27/22 6:55 AM) Weight 137 kg (03/27/22 6:55 AM) Oxygen Saturation [94-100 %] 98 % (03/27/22 6:55 AM) Pulse Rate [55-90 bpm] 72 bpm (03/27/22 6:55 AM) Body Mass Index [18.5-24.99 kg/m2] 35.3 kg/m2 *>HHI* (03/27/22 6:55 AM) Blood Pressure [90-138/55-84 mm Hg] 122/ 78mm Hg (03/27/22 6:55 AM) Mode of Delivery (Oxygen) Room air (03/27/22 6:55 AM) Blood pressure sites Arm, right (03/27/22 6:55 AM) Weight Obtained Via Standing scale (03/27/22 6:55 AM) Social History Social History Type Response Smoking Status Never smoker; Tobacc o user in household: No entered on: 01/08/15 Sex Patient Care team information Care Team Personnel Name: Mandie RAND, Nelson Goode Position: S Primary Care Physician Member Role: PCP Address: Address: [address] [place] [address]- Care Team Related Persons Name: MARIBEL RECIO Address: home [address] [place] [address]
--- OUTSIDE RECORDS SUMMARY | 2023-11-22 08:12 | XMS_ITS | Continuity of Care Document ---
Author Organization [facility] Wojciech Herzog Eduard lt Address [address] [place] [address]- Care Team Providers Care Lining Vamper Name Role Phone Mandie RAND, Nelson Goode Primary Care Physician [facility] Date(s): 01/06/22 - 02/05/22 [facility] Adult [address] [place] [address]- Allergies, Adverse Reactions, Alerts No Known Allergies [...] 90 tablet, 1 Refills, 01/06/22 7:22:00 EDT, [facility], 197, cm, 01/06/22 6:53:00 EDT, Height, 129.8, kg, 12/13/20 9:06:00 EDT, Dry Weight Start Date: 01/06/22 Status: Ordered diclofenac sodium 75 mg oral delayed release tablet 1 tablet, By Mouth, 2 times a day, # 180 tablet, 1 Refills, 01/06/22 7:22:00 EDT, [facility] # [facility], 197, cm, 01/06/22 6:53:00 [...] 135 tablet, 1 Refills, 01/06/22 7:22:00 EDT, [facility] # [facility], 197, cm, 01/06/22 6:53:00 [...] Personnel Name: Mandie RAND, Nelson Goode Address: [address] [place] [id number]
--- OUTSIDE RECORDS SUMMARY | 2023-11-22 08:12 | XMS_ITS | Continuity of Care Document ---
Author Organization [facility] Herzog Eduard lt Address [address] [place] [address]- Care Team Providers Care Consulting Hr Professional Name Role Phone Mandie RAND, Nelson Goode Primary Care Physician [phone] [facility] Date(s): 11/22/21 - 12/22/21 [facility] Herzog Adult [address] [place] [address]- Allergies, Adverse Reactions, Alerts No Known Allergies [...] tablet 1 tablet, By Mouth, Daily, # 30 tablet, 11 Refills, [facility], 197, cm, 10/15/20 15:52:00EDT, Height, 129.8, kg, 12/13/20 9:06:00 EDT, Dry Weight Start Date: 12/17/21 Status: Ordered diclofenac sodium 75 mg oral delayed release tablet 1 tablet, By Mouth, 2 times a day, # 60 tablet, 5 Refills, [facility], 197, cm, 10/15/20 15:52:00 [...] oral tablet 1.5 tablet, By Mouth, Daily, NEED APPOINTMENT FOR MORE REFILLS., # 45 tablet, 0 Refills, [facility], 197, cm, 10/15/20 15:52:00 EDT, Height, 129.8, kg, 12/13/20 9:06:00 EDT, Dry Weight Start Date: 12/17/21 Status: Ordered vitamin c vitamin c, By [...]
--- OUTSIDE RECORDS SUMMARY | 2023-11-22 08:12 | XMS_ITS | Continuity of Care Document ---
Author Organization [facility] Michael Eduard lt Address [address] [place] [address]- Care Team Providers Care Bailer Tenders Supervisor Name Role Phone Mandie RAND, Nelson Goode Primary Care Physician [facility] Date(s): 04/15/22 - 05/15/22 [facility] Michael Adult [address] [place] [address]- Attending Physician: Admtr, Ar8 Allergies, Adverse Reactions, [...] tetanus/diphtheria/pertussis, acel(Tdap) 01/08/15 Given 1Result Comment: [04/05/2017] bihansa [facility] 2Result Comment: error 3Location History: BIG Y [...] 90 tablet, 1 Refills, 01/06/22 7:22:00 EDT, [facility] # [facility], 197, cm, 01/06/22 6:53:00 EDT, Height, 129.8, kg, 12/13/20 9:06:00 EDT, Dry Weight Start Date: 01/06/22 Status: Ordered diclofenac sodium 75 mg oral delayed release tablet 1 tablet, By Mouth, 2 times a day, # 180 tablet, 1 Refills, 01/06/22 7:22:00 EDT, [facility] # [facility], 197, cm, 01/06/22 6:53:00 EDT, Height, 129.8, kg, 12/13/20 9:06:00 EDT, Dry Weight Start Date: 01/06/22 Status: Ordered Multivitamin By Mouth, Daily, 0 Refills, Maintenance, 04/04/20 16:59:00 EST, Partial fill upon patient request Start Date: 04/04/20 Status: Ordered sertraline 50 mg oral tablet 1.5 tablet, By Mouth, Daily, # 135 tablet, 1 Refills, 04/15/22 14:21:00 EST, [facility] # [facility], 197, cm, 04/15/22 14:06:00 [...] in household: No entered on: 01/08/15 Sex Note * Event Display: Non BH Lab Results Authored Date: * Event Display: Non BH Lab Results Authored Date: * Event Display: Non BH Lab Results Authored Date: Patient Care team information Care Team Personnel Name: Nelson Lockwood MD Position: [facility] Primary Care Physician Member Role: PCP Address: Address: [address] [place] [address]- Care Team Related Persons Name: MARIBEL RECIO Address: home [address] [place] [address]
--- OUTSIDE RECORDS SUMMARY | 2023-11-22 08:12 | XMS_ITS | Continuity of Care Document ---
Author Organization [facility] Wojciech Herzog Eduard lt Address [address] [place] [address]- Care Team Providers Care Monkey Breeder Name Role Phone Nelson Lockwood MD Primary Care Physician [place] [facility] [place] 09/26/21 - 10/26/21 [facility] Adult [address] [place] [address]- Allergies, Adverse Reactions, Alerts No Known Allergies [...] 20 mg oral tablet See Instructions, TAKE ONE TABLET BY MOUTH EVERY DAY, # 30 tablet, 1 Refills, [facility] # [facility], 197, cm, 10/15/20 15:52:00 EDT, Height, 129.8, kg, 12/13/20 9:06:00 EDT, Dry Weight Start Date: 09/26/21 Status: Ordered diclofenac sodium 75 mg oral delayed release tablet 1 tablet, By Mouth, 2 times a day, # 60 tablet, 5 Refills, [facility] # [facility], 197, cm, 10/15/20 15:52:00 [...] Status: Ordered sertraline 50 mg oral tablet See Instructions, TAKE ONE AND ONE-HALF TABLETS BY MOUTH EVERY DAY, # 45 tablet, 1 Refills, [facility] # [facility], 197, cm, 10/15/20 15:52:00 EDT, Height, 129.8, kg, 12/13/20 9:06:00 EDT, Dry Weight Start Date: 09/26/21 Status: Ordered vitamin c vitamin c, By [...]
--- OUTSIDE RECORDS SUMMARY | 2023-11-22 08:12 | XMS_ITS | Continuity of Care Document ---
Author Organization [facility] Wojciech Rodriguez Eduard lt Address [address] [place] [address]- Care Team Providers Care Spring Bender Name Role Phone Mandie RAND, Nelson Goode Primary Care Physician [facility]s): 10/02/23 - 11/01/23 [facility] Adult [address] [place] [address]- Allergies, Adverse Reactions, Alerts No Known Allergies [...] Given 1Result Comment: [04/05/2017] timur santo wojciech gilley 2Location History: [facility] Medications aspirin 81 [...] 28 tablet, 0 Refills,Maintenance, 02/22/23 8:17:00 EDT, [facility], 197, cm, 04/15/22 14:06:00 EST, Height Start Date: 02/22/23 Stop Date: 03/08/23 Status: Ordered Multivitamin By Mouth, Daily, 0 Refills, Maintenance, 04/04/20 16:59:00 EST, Partial fill upon patient request Start Date: 04/04/20 Status: Ordered sertraline 50 mg oral tablet 1.5 tablet, By Mouth, Daily, # 135 tablet, 0 Refills, Maintenance, 10/02/23 7:40:00 EDT, [facility] # [facility], 197, cm, 04/15/22 14:06:00 [...] Personnel Name: Mandie RAND, Nelson Goode Position: [facility] Physician - Primary Care Member Role: PCP Address: Address: [address] [place] [address]- Care Team Related Persons Name: MARIBEL RECIO Address: home [address] [place] [id number] Name: MARIBEL RECIO Address: home [address] [place] [address]
--- OUTSIDE RECORDS SUMMARY | 2023-11-22 08:12 | XMS_ITS | Continuity of Care Document ---
Author Organization [facility] Wojciech Rodriguez Eduard lt Address [address] [place] [address]- Care Team Providers Care It Web Development Consultant Name Role Phone Mandie RAND, Nelson Goode Primary Care Physician [phone] [facility] Date(s): 12/09/22 - 01/08/23 [facility] W[facility] Rodriguez Adult [address] [place] [address]- Allergies, Adverse Reactions, Alerts No Known Allergies [...] 01/08/15 Given 1Result Comment: [04/05/2017] timur santo [facility] [place] 2Location History: [facility] Medications aspirin 81 mg oral delayed release tablet 81 mg, By Mouth, Daily, Plz take it over the counter., # 30 tablet, Refills 0, Tot. Refills 0, Maintenance, 10/14/17 9:48:17 EDT, Do Not Route Start Date: 10/14/17 Status: Ordered atorvastatin 20 mg oral tablet 1 tablet, By Mouth, Daily, # 90 tablet, 1 Refills, 01/06/22 7:22:00 EDT, [facility], 197, cm, 01/06/22 6:53:00 EDT, Height, 129.8, kg, 12/13/20 9:06:00 EDT, Dry Weight Start Date: 01/06/22 Status: Ordered diclofenac sodium 75 mg oral delayed release tablet 1 tablet, By Mouth, 2 times a day, # 180 tablet, 1 Refills, Maintenance, 07/29/22 9:37:00 EST, [facility], 197, cm, 04/15/22 14:06:00 EST, Height, 129.8, kg, 12/13/20 9:06:00 EDT, Dry Weight Start Date: 07/29/22 Status: Ordered Multivitamin By Mouth, Daily, 0 Refills, Maintenance, 04/04/20 16:59:00 EST, Partial fill upon patient request Start Date: 04/04/20 Status: Ordered sertraline 50 mg oral tablet 1.5 tablet, By Mouth, Daily, # 135 tablet, 1 Refills, Maintenance, 10/23/22 8:30:00 EDT, [facility] # [facility], 197, cm, 04/15/22 14:06:00 EST, Height, 129.8, kg, 12/13/20 9:06:00 EDT, Dry Weight Start Date: 10/23/22 Status: Ordered vitamin c vitamin c, By [...] Team Personnel Name: Nelson Lockwood MD Position: S Physician - Primary Care Member Role: PCP Address: Address: [address] [place] [address]- Care Team Related Persons Name: MARIBEL RECIO Address: home [address] [place] [address]
--- OUTSIDE RECORDS SUMMARY | 2023-11-22 08:12 | XMS_ITS | Continuity of Care Document ---
Author Organization [facility] Wojciech Rodriguez Eduard lt Address [address] [place] [address]- Care Team Providers Care Endband Cutter Hand Name Role Phone Mandie RAND, Nelson Goode Primary Care Physician [facility] Date(s): 01/06/22 - 01/13/22 [facility] Adult [address] [place] [address]- Attending Physician: Antonette ROWELL, Irene Byrnes Allergies, [...] 01/08/15 Given 1Result Comment: [04/05/2017] timur [facility] [place] 2Result Comment: error 3Location History: [facility] [...] tablet, 1 Refills, 01/06/22 7:22:00 EDT, [facility] # [facility], 197, cm, 01/06/22 6:53:00 EDT, Height, 129.8, kg, 12/13/20 9:06:00 EDT, Dry Weight Start Date: 01/06/22 Status: Ordered diclofenac sodium 75 mg oral delayed release tablet 1 tablet, By Mouth, 2 times a day, # 180 tablet, 1 Refills, 01/06/22 7:22:00 EDT, [facility] # [facility], [...] tablet, 1 Refills, 01/06/22 7:22:00 EDT, [facility] # [facility], [...] Obstructive sleep apnea(Confirmed) Active Palpitations(Confirmed) Active 1Mom Vital Signs Most recent to oldest [Reference Range]: 1 2 Height 197 cm (01/06/22 3:54 PM) 197 cm (01/06/22 6:53 AM) Weight 138.1 kg (01/06/22 3:54 PM) 138.1 kg (01/06/22 6:53 AM) Oxygen Saturation [94-100 %] 98 % (01/06/22 6:53 AM) Pulse Rate [55-90 bpm] 70 bpm (01/06/22 6:53 AM) Body Mass Index [18.5-24.99] 35.58 *>HHI* (01/06/22 6:53 AM) Blood Pressure [90-138/55-84 mm Hg] 134/ 83mm Hg (01/06/22 6:53 AM) Blood pressure sites Arm, right (01/06/22 6:53 AM) Weight Obtained Via Standing scale (01/06/22 6:53 AM) Social History Social History Type Response Smoking Status Never smoker; Tobacc o user in household: No entered on: 01/08/15 Sex
--- OUTSIDE RECORDS SUMMARY | 2023-11-22 08:12 | XMS_ITS | Continuity of Care Document ---
Author Organization [facility] Rosenda Eduard lt Address [address] [place] [address]- Care Team Providers Care Architectural Engineering Teacher Name Role Phone Nelson Lockwood MD Primary Care Physician [phone] En[place] [facility] Date(s): 01/11/21 - 05/31/21 [facility] Adult [address] [place] [address]- Attending Physician: Nelson Lockwood MD Allergies, Adverse [...] 01/08/15 Given 1Result Comment: [04/05/2017] timur santo [facility] [place] 2Result Comment: error 3Location History: BIG [...] a day, # 60 tablet, 5 Refills, [facility] # [facility], 197, cm, 10/15/20 15:52:00 [...] Unknown, 11 Refills, Maintenance, 09/25/20 16:33:00 EDT, [facility] # [facility], 197, cm, 09/25/20 16:13:00 [...]
[2023-11-22 08:36] VITALS: BP 122/80; PULSE 78; TEMP 36.7; O2SAT 98; BMI 36.3
--- NOTE | 2023-11-22 08:36 | MHC.OFFWIV ---
Intake Vital Signs 11/22/23 08:36 Height 6 ft 6 in Weight 314 lb BMI 36.3 BP 122/80 Blood Pressure Location Rt brachial Position Sitting Pulse 78 Pulse Source Pulse Oximeter Temp 98.0 F Temp Source Oral Pulse Oximetry (%) 98 Intake Visit Reasons: EP ear Intake Note: pt is here for ear pain, feeling blocked and causing headaches Patient Tobacco Use Status: Never used Tobacco Allergies No Known Allergies [No Known Allergies*] Allergy (Verified 11/22/23 08:37) Do you need a note to return to daycare/school/sports/work: No HPI HPI Comments History of Present Illness Details Patient is a 43-year-old male complaining of bilateral ear fullness, he denies any pain or fevers but does say he has slightly reduced hearing. He states he wears lowest cancelling headphones for work and he is wondering if this is causing him to have cerumen impaction. He said he has cerumen impaction bilaterally last fall and we removed it and he felt much better PFSH Social History Patient Tobacco Use Status: Never used Tobacco Review of Systems Const All systems reviewed & are unremarkable except as noted in HPI and below Physical Exam Vital Signs: Last Vital Signs Temp 98.0 F 11/22/23 08:36 Pulse 78 11/22/23 08:36 BP 122/80 11/22/23 08:36 Pulse Ox 98 11/22/23 08:36 BMI result Body Mass Index 36.3 Const General: cooperative, healthy appearing, comfortable and no acute distress Orientation/consciousness: patient oriented x3 HEENT Head: Yes normal to inspection Ears: external ears normal, TM's normal bilaterally, EAC's normal and mastoids normal General nose exam: Normal external nose present Face and sinus: Yes normal facial exam and Yes sinuses nontender Mouth: Normal oral and palatal mucosa present Throat: Yes posterior oropharynx abnormal and Yes cobblestoning Resp Effort & Inspection: normal respiratory effort and able to speak in complete sentences Neuro General: patient oriented x3 Assessment & Plan Assessment & Plan (1) Environmental allergies: Code(s): Z91.09 - Other allergy status, other than to drugs and biological substances Plan: Recommended starting daily allergy pill, if his symptoms continue to follow up with PCP Plan see above Coding Level of Care Code New Pt Level 3 (39478) Diagnoses Environmental allergies Z91.09
== END 2023-11-22 09:15 | disposition home or self-care (01) ==
PROVIDERS: PCP Internal Medicine; Visit Provider Physician Assistant
DX: Z91.09 Other allergy status, other than to drugs and biological substances (principal)
CPT/HCPCS: 99203